=== PATIENT | female | born 1965 | race Caucasian/White ===

== ENCOUNTER 2024-11-01 19:48 | Emergency (ER) | payer OTHER ==
[~2024-11-01] VITALS: Ht 165.1 cm; Wt 77.0 kg
[2024-11-01 19:59] VITALS: TEMP 36.8; O2SAT 97
[2024-11-01] MEDS: IBUPROFEN 600MG TABLET PO ONE (22:10)
[2024-11-02 00:37] VITALS: BP 109/60; PULSE 61; RESP 16; O2SAT 97
== END 2024-11-02 00:39 | disposition home or self-care (01) ==
LOC: ER 19:48
DX: S02.5XXA Fracture of tooth (traumatic), initial encounter for closed fracture (principal); S00.83XA Contusion of other part of head, initial encounter; S00.33XA Contusion of nose, initial encounter; X58.XXXA Exposure to other specified factors, initial encounter; Y93.89 Activity, other specified; Y92.89 Other specified places as the place of occurrence of the external cause; Y99.8 Other external cause status
CPT/HCPCS: 99284; A4606